=== PATIENT | female | born 1985 | race Caucasian/White ===

== ENCOUNTER 2021-10-29 07:22 | Emergency (ER) | payer OTHER, MEDICAID ==
[2021-10-29] MEDS ORDERED: traMADol 50 MG Tab PO ONE (07:48)
[2021-10-29] MEDS ORDERED: Lidocaine 2% Viscous Solution 15 ML UD PO STA (07:49)
[2021-10-29] MEDS ORDERED: Amoxicillin/Clavulanate K 875-125 MG Tab PO STA (07:49)
[2021-10-29] MEDS ORDERED: Benzocaine 20% Topical Spray UD MUCMEM ONE (08:03)
[2021-10-29] MEDS ORDERED: Acetaminophen/HYDROcodone 325-5 MG Tab PO ONE (08:05)
== END 2021-10-29 08:15 | disposition home or self-care (01) ==
LOC: MW.ED 07:22
DX: K04.7 Periapical abscess without sinus (principal); K02.9 Dental caries, unspecified; Z79.899 Other long term (current) drug therapy; Z88.5 Allergy status to narcotic agent; Z88.8 Allergy status to other drugs, medicaments and biological substances
CPT/HCPCS: 99282; A9270